=== PATIENT | male | born 1965 ===

== ENCOUNTER → 2017-09-03 09:44 | Emergency (ER) | payer BC ==
[2017-09-03 10:51] VITALS: BP 119/81
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
== END | disposition home or self-care (01) ==
LOC: UCCORT 09:44
DX: H66.91 Otitis media, unspecified, right ear (principal); H81.10 Benign paroxysmal vertigo, unspecified ear